=== PATIENT | female | born 1970 | race Hispanic/Latino ===

== ENCOUNTER 2019-03-15 09:57 | Emergency (ER) | payer SELFPAY ==
[2019-03-15] MEDS ORDERED: HYDROCODONE/APAP 7.5/325 MG TAB ONE (12:07)
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
[2019-03-15 13:45] VITALS: O2SAT 100
[2019-03-15 13:48] VITALS: TEMP 97.6
[2019-03-15 13:50] VITALS: BP 156/80
== END 2019-03-15 13:31 | disposition home or self-care (01) ==
LOC: ER 09:57
PROC: 2W38X1Z Immobilization of Right Upper Extremity using Splint (ICD-10-PCS; principal; 2019-03-15)
DX: S52.101A Unspecified fracture of upper end of right radius, initial encounter for closed fracture (principal); V47.6XXA Car passenger injured in collision with fixed or stationary object in traffic accident, initial encounter
CPT/HCPCS: 71045; 99284